=== PATIENT | male | born 1970 | race Caucasian/White ===

== ENCOUNTER → 2022-11-28 07:01 | Outpatient (CLI) | payer OTHER, SELFPAY ==
--- NOTE | 2022-11-28 | DI.MRI.S_ITS ---
PROCEDURE: MR SHOULDER RT WO CON INDICATIONS: Tendonitis of right rotator cuff TECHNIQUE: Noncontrast oblique coronal T2 fast spin echo with fat saturation, oblique sagittal T1 spin echo and T2 fast spin echo with fat saturation, axial T1 spin echo and T2 fast spin echo with fat saturation through the shoulder. COMPARISON: [facility], CR, XR SHOULDER 2+ VIEWS RIGHT, 11/17/2022, 13:14. FINDINGS: Image quality: Excellent. Rotator cuff: There is moderate supraspinatus tendinosis. There is partial-thickness tear along the bursal surface of the supraspinatus tendon. No tendon retraction or supraspinatus muscle atrophy. Mild infraspinatus and subscapularis tendinosis is present. Bones and bursae: No bone marrow contusions or fractures. Moderate acromioclavicular and mild glenohumeral joint degeneration. The acromion demonstrates conventional anatomy, without an os acromiale. No pathologic subacromial-subdeltoid or subcoracoid bursal fluid is present. Capsule and soft tissues: There is anterior superior labral tear at 9:00-11:00 and small paralabral cysts. The long head of the biceps tendon demonstrates normal location and morphology. The rotator interval appears normal, without fibrosis. The coracohumeral ligament is normal in thickness. Mildly prominent subcentimeter axillary lymph nodes are noted, likely reactive. IMPRESSION: 1. Moderate supraspinatus tendinosis. There is partial-thickness tear along the bursal surface. 2. Mild infraspinatus and subscapularis tendinosis. 3. Anterior superior labral tear and paralabral cysts. 4. Moderate acromioclavicular and mild glenohumeral joint degeneration. Dictated by: Dru Pratt M.D. on 11/28/2022 at 11:16 Approved by: Dru Pratt M.D. on 11/28/2022 at 11:30
== END ==
PROVIDERS: PCP Orthopaedic Surgery; Referring Provider Orthopaedic Surgery; Visit Provider Orthopaedic Surgery
DX: M75.111 Incomplete rotator cuff tear or rupture of right shoulder, not specified as traumatic (principal); S43.431A Superior glenoid labrum lesion of right shoulder, initial encounter; M75.81 Other shoulder lesions, right shoulder; M19.011 Primary osteoarthritis, right shoulder
CPT/HCPCS: 73221

== ENCOUNTER 2024-10-11 08:38 | Day surgery (SDC) | payer OTHER, SELFPAY ==
--- NOTE | 2024-10-11 | PATH_ITS ---
[facility] Accession Number: [id number] No. of containers..01 Tissue . 01 Material submitted: . rectum - RECTAL POLYP . 01 Diagnosis: RECTAL POLYP: Hyperplastic polyp. PATRICIA 10/14/2024 1143 Local . 01 Electronically signed: . Seth Mitchell MD, PhD, Pathologist NPI- [id number] . 01 Gross description: . Received in formalin with two patient identifiers and rectal polyp, is a single acosta soft tissue fragment 0.4 cm in greatest dimension. Submitted in cassette A1. ([id number]) /PATRICIA 10/13/2024 1025 Local . 01 Pathologist provided ICD-10: K62.1 . 01 CPT . 897716 Specimen Comment: A courtesy copy of this report has been sent to [phone] Performed at: [address] [facility] [id number] MD Byron Davidson MD Phone: [phone]
[2024-10-11 09:14] VITALS: BP 117/71; PULSE 65; RESP 18; TEMP 36.1; O2SAT 99
--- NOTE | 2024-10-11 09:25 | PM.HP.1 ---
History of Present Illness History of Present Illness Date Patient Seen: 10/11/24 Time Patient Seen: 09:26 Chief complaint: SDC Narrative: Brayden is a 54-year-old man here for his first screen colonoscopy. No family history of colon cancer. [facility] Medical History (Updated 10/11/24 @ 09:26 by Bennett Gomez MD) PVCs (premature ventricular contractions) Social History Smoking Status: Never smoker alcohol intake: current Meds Home Medications and Allergies Home Medications Medication Instructions Recorded Confirmed Type sodium,potassium,mag sulfates 17.5 See Rx Instructions PO .COMPLEX 09/15/24 10/11/24 Rx gram-3.13 gram-1.6 gram oral soln #354 mL (Suprep Bowel Prep Kit) Allergies Allergy/AdvReac Type Severity Reaction Status Date / Time No Known Drug Allergies Allergy Verified 10/11/24 09:23 Exam Vital Signs (past 8 hours): - 10/11/24 09:14 Temperature 97.0 F L Pulse Rate 65 Respiratory Rate 18 Blood Pressure 117/71 Pulse Oximetry 99 Oxygen Delivery Method Room Air Oxygen Delivery Method Room Air Const General: healthy appearing Resp Effort & Inspection: normal respiratory effort Assessment & Plan Assessment and plan (1) Colon cancer screening: Status: Acute Plan Colonoscopy Time-Based Coding :: [TOTAL MINUTES] spent with patient and on the chart (including review of chart, obtaining history, exam, reviewing outside data, placing orders, documenting exam and treatment plan, and counseling patient) on [DATE].
[2024-10-11 10:38] LABS: BUN Creatinine Ratio 18.1 (6-22); Blood Urea Nitrogen 15 mg/dL (9-20); Carbon Dioxide 23 mmol/L (22-32); Chloride 104 mmol/L (98-107); Estimated Glomerular Filt Rate > 60 mL/min (>60); Glucose 88 mg/dL (70-100); Sodium 134 mmol/L (137-145)
[2024-10-11 10:40] LABS: HEMOLYSIS 98 (0-50)
[2024-10-11 10:41] VITALS: BP 113/56; PULSE 70; RESP 15; TEMP 36.6; O2SAT 95
[2024-10-11 10:42] LABS: Potassium 4.6 mmol/L (3.4-5.1)
[2024-10-11 10:43] LABS: Magnesium 1.8 mg/dL (1.6-2.3)
[2024-10-11 10:48] VITALS: BP 112/75; PULSE 67; RESP 18; TEMP 36.6; O2SAT 95
--- NOTE | 2024-10-11 10:51 | EKG_ITS ---
[place] [id number] [place] [id number] Test Date: 2024-10-11 Pat Name: Lele Rodriguez Department: Room: Gender: Male Physician Coder: KENISHA : 1970 Requested By: Order Number: [id number] Reading MD: Victor M Yang Measurements Intervals [place] Rate: 55 P: -1 VT: 186 QRS: -38 QRSD: 86 T: -4 QT: 422 QTc: 403 Interpretive Statements Sinus bradycardia with occasional premature ventricular complexes Left axis deviation Low voltage QRS Inferior infarct , age undetermined Electronically Signed On 10-13-2024 16:10:35 PST by Victor M Yang
[2024-10-11 10:55] VITALS: BP 126/79; PULSE 59; RESP 18; TEMP 36.6; O2SAT 96
--- NOTE | 2024-10-11 11:02 | SUR.PHASEII ---
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
--- NOTE | 2024-10-27 14:58 | PM.OP.COLON ---
Operative Date/Time/Diagnoses Date of procedure: 10/11/24 Time of procedure: 10:34 Pre-op diagnosis: Colon cancer screening Post-op diagnosis: same Procedure & Clinicians Study performed: Colonoscopy Same procedure as scheduled: Yes Surgeon: Bennett Gomez Procedure Notes Procedure in detail: Surgeon: Bennett Gomez MD Anesthesia: Rosa Maria Rene CRNA Procedure: The patient was brought to the endoscopy suite, placed in left lateral decubitus position. The patient was connected to monitoring devices. A time-out was performed. Sedation was administered. Once the patient was adequately sedated, a digital rectal exam was performed and was normal. The scope was then inserted and advanced to the cecum where the appendiceal orifice was identified and photographed. The scope was then slowly withdrawn over greater than 6 minutes. The mucosa was thoroughly inspected. There was a 5 mm polyp in the mid rectum removed with a cold snare. The scope was retroflexed in the rectum. No other abnormalities were found. The scope was straightened and removed. The patient was awakened and brought to recovery. Scope withdrawal time: 7 minutes Sedation time: 14 minutes EBL: 3 mL Findings: 5 mm rectal polyp Post-procedure Disposition: PACU
== END 2024-10-11 11:21 | disposition home or self-care (01) ==
PROVIDERS: Nurse Anesthetist, Certified Registered; PCP Family Medicine; Referring Provider Surgery; Visit Provider Surgery
PROC: 0DJD8ZZ Inspection of Lower Intestinal Tract, Via Natural or Artificial Opening Endoscopic (ICD-10-PCS; CPT 45378; principal; 2024-10-11 09:45)
DX: Z12.11 Encounter for screening for malignant neoplasm of colon (principal); K62.1 Rectal polyp; I49.3 Ventricular premature depolarization
CPT/HCPCS: 45385; 80048; 83735; 93005; J2405; J2704

== ENCOUNTER → 2024-12-21 15:17 | Outpatient (CLI) | payer OTHER, SELFPAY ==
--- NOTE | 2024-12-21 15:19 | DI.RAD.S_ITS ---
PROCEDURE: XR KNEE LT 3V INDICATIONS: KNEE PAIN TECHNIQUE: 3 views of the knee were acquired. COMPARISON: None. FINDINGS: Bones: There are no osseous abnormalities. Joints: The tibialfemoral and patellofemoral joints show mild degeneration. There is mild chondrocalcinosis in the mediolateral menisci. Soft tissues: Normal IMPRESSION: Mild degeneration and mild chondrocalcinosis of the menisci. This can indicate pseudogout Dictated by: Zach Saxena M.D. on 12/22/2024 at 12:58 Approved by: Zach Saxena M.D. on 12/22/2024 at 12:58
--- NOTE | 2024-12-21 15:19 | DI.RAD.S_ITS ---
PROCEDURE: XR SHOULDER LT MIN 2V INDICATIONS: SHOULDER PAIN TECHNIQUE: Three views of the left shoulder were acquired. COMPARISON: None. FINDINGS: Bones: There are no osseous abnormalities. Acromioclavicular and glenohumeral joints: Glenohumeral joint is normal. Mild acromioclavicular arthritis likely represents atypical degeneration. Soft tissues: No soft tissue swelling, calcification or mass. IMPRESSION: Mild acromioclavicular degeneration Dictated by: Zach Saxena M.D. on 12/22/2024 at 12:59 Approved by: Zach Saxena M.D. on 12/22/2024 at 12:59
== END ==
LOC: RAD 15:18
PROVIDERS: PCP Family Medicine; Referring Provider Family Medicine; Visit Provider Family Medicine
DX: M11.262 Other chondrocalcinosis, left knee (principal); M25.562 Pain in left knee; M25.512 Pain in left shoulder; G89.29 Other chronic pain
CPT/HCPCS: 73030; 73562

== ENCOUNTER → 2025-03-20 08:00 | Outpatient (CLI) | payer OTHER, SELFPAY ==
--- NOTE | 2025-03-20 08:01 | DI.ECHO.S_ITS ---
[place] [facility]---------+ [facility] : : [address] : : [place] : : [id number] : : Phone: [phone] Echocardiogram Report + + :Name: TAN HOBBS Study Date: 03/20/2025 Height: 74 in : :Hospital ReadingLocation: Weight: 225 lb : : Gender: Male BSA: 2.3 m2 : :: 1970 Age: 54 yrs BP: 113/71 mmHg: :Reason For Study: ABNORMAL HEART BEAT : :Ordering Physician: JACKIE, : :KEKE Performed By: Chikis Yang : :Referring: KEKE MEJIA : + + Interpretation Summary The patient was in sinus bradycardia with heart rates between 42-50 bpm during the exam. The patient had occasional PVCs during the exam. The ejection fraction is estimated to be 50-55%. Grade I diastolic dysfunction. The right ventricular systolic function is normal. Pulmonary artery pressures cannot be estimated because of the lack of a measurable TR jet velocity but the IVC suggests a CVP of around 3 mmHg. There is mild mitral regurgitation. Procedure: A two-dimensional transthoracic echocardiogram with color flow and Doppler was performed. The study quality was technically adequate. There is no prior echocardiogram noted for this patient. The patient had occasional PVCs during the exam. The heart rate ranged between 42-50 bpm during the study. The patient was in sinus bradycardia with heart rates between 42-50 bpm during the exam. Left Ventricle: The left ventricle is normal in size and wall thickness. The ejection fraction is estimated to be 50-55%. There are no obvious focal wall motion abnormalities noted but poor endocardial definition reduces the sensitivity for the detection of such. Grade I diastolic dysfunction. Right Ventricle: The right ventricle is normal size. The right ventricular systolic function is normal. Atria: The left atrium is mildly dilated. Right atrial size is normal. There is no Doppler evidence for an interatrial shunt. Mitral Valve: There is borderline mitral valve prolapse. There is mild mitral regurgitation. There are multiple regurgitant jets present. Aortic Valve: The aortic valve is trileaflet. The aortic valve opens well. There is no aortic valve stenosis. No aortic regurgitation is present. Tricuspid Valve: The tricuspid valve leaflets are thin and pliable. No tricuspid regurgitation. Pulmonary artery pressures cannot be estimated because of the lack of a measurable TR jet velocity but the IVC suggests a CVP of around 3 mmHg. Pulmonic Valve: The pulmonic valve leaflets are thin and pliable; valve motion is normal. There is trace pulmonic regurgitation. Great Vessels: The aortic root is normal size. The dimensions of the ascending aorta are normal. The IVC is of normal diameter and collapses greater than 50% with a sniff. This suggests a low right atrial pressure of 3 mm Hg. Pericardium/ Pleura There is no pericardial effusion. There is no pleural effusion. MMode/2D Measurements & Calculations LVIDd: 5.9 cm LVOT diam: 2.2 cm LVIDs: 4.2 cm Ao root diam: 3.4 cm FS: 29.6 % asc Aorta Diam: 3.5 cm IVSd: 0.60 cm Ao Arch Diam (Prox Trans): 3.4 cm LVPWd: 0.77 cm LV unger. diameter/BSA (cm/m^2): 2.6 LV sys. diameter/BSA (cm/m^2): 1.8 LA A2 area: 21.4 cm2 RA long axis: 5.5 cm LA A4 area: 24.1 cm2 RA area: 20.1 cm2 LA length (vol): 5.4 cm RA vol: 62.7 ml LA vol: 81.4 ml RA : 27.4 ml/m2 LA vol index: 35.6 ml/m2 IVC diam: 1.5 cm RVD1 (basal): 4.0 cm TAPSE: 2.1 cm Doppler Measurements & Calculations Ao V2 max: 110.9 cm/sec LVOT Max Dustin: 81.3 cm/sec Ao V2 mean: 78.2 cm/sec LV V1 max P.6 mmHg Ao max P.9 mmHg LV V1 VTI: 18.7 cm Ao mean P.7 mmHg RONN(I,D): 2.6 cm2 Ao V2 VTI: 26.5 cm RONN(V,D): 2.7 cm2 sev ratio: 0.70 RONN indexed to BSA (cm^2/m^2): 1.1 MV E max dustin: 60.3 cm/sec PA V2 max: 87.2 cm/sec MV A max dustin: 52.7 cm/sec PA V2 mean: 59.6 cm/sec MV E/A: 1.1 PA mean P.6 mmHg Med Peak E' Dustin: 6.3 cm/sec PA pr(Accel): 18.6 mmHg E/E' med: 9.6 Lat Peak E' Dustin: 9.9 cm/sec E/E' lat: 6.1 E/e' average: 7.8 MV dec time: 0.26 sec SVLVOT): 68.6 ml Reading Physician:10:47 AM
== END ==
LOC: ECHO 08:01
PROVIDERS: PCP Family Medicine; Referring Provider Family Medicine; Visit Provider Family Medicine
DX: I34.0 Nonrheumatic mitral (valve) insufficiency (principal); I47.29 Other ventricular tachycardia; R00.8 Other abnormalities of heart beat
CPT/HCPCS: 93306